=== PATIENT | male | born 1935 | race Caucasian/White ===

== ENCOUNTER → 2023-11-04 11:18 | Outpatient (REF) | payer MEDICARE, BC, SELFPAY | LOC: HWRAD 11:18 | PROVIDERS: ATTENDING PHYSICIAN Surgery Vascular Surgery; FAMILY PHYSICIAN Family Medicine | DX: I71.43 Infrarenal abdominal aortic aneurysm, without rupture (principal) | CPT/HCPCS: 74176 ==

== ENCOUNTER 2025-01-13 07:51 | Outpatient (RCR) | payer MEDICARE, BC, SELFPAY ==
[2025-01-13 08:00] VITALS: BP 159/77
[2025-01-13] MEDS: SODIUM BICARBONATE 1150 MEQ IV (08:14)
== END 2025-02-04 23:59 | disposition home or self-care (01) ==
LOC: OID 07:51
PROVIDERS: ATTENDING PHYSICIAN Surgery Vascular Surgery; FAMILY PHYSICIAN Family Medicine
DX: I71.40 Abdominal aortic aneurysm, without rupture, unspecified (principal)
CPT/HCPCS: 74176; 96365; 96366

== ENCOUNTER 2025-02-08 09:17 | Inpatient (IN) | payer MEDICARE, BC, SELFPAY ==
[2025-02-08] VITALS (14 sets, daily range): BP systolic 131–167; BP diastolic 57–90; BMI 23.9
[2025-02-08] MEDS: NSS 184 ML IV (07:18)
[2025-02-08] MEDS: LOW STRENGTH ASPIRIN 324 MG PO (07:19)
--- NOTE | 2025-02-08 09:57 | PTCARENOTE ---
Patient received to IVU from technical laboratory asst. Right radial band intact 11cc in the band. SB HR 38-46, BP 138/59. HE is AO x 3, [employer] [place] hearing aids. Denies chest pain or shortness of breath. Plan of care reviewed and oriented to call leyva
--- NOTE | 2025-02-08 10:47 | CONSULT.CT ---
Consultation
-
Date/Time Consultation Requested: 02/08/25
Date/Time Consultation Performed: 02/08/25
Requesting Provider: carlotta Lopez
Performing Provider: gokul KINGSLEY for Bob Kapadia MD
Reason for Consultation: CABG evaluation
Patient History
Physicians
Family Physician: Harshil Mccrary
Outpatient Psychiatric Nurse Practitioner: Matt Morrow
Inpatient Psychiatric Nurse Practitioner: Carlotta Lopez
History of Present Illness
89-year-old male was admitted 02/08/25 for preprocedure cardiac cath as clearance for TEVAR scheduled Saturday with Dr. Chen. 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 Patient had been experiencing an inability to walk his usual
pace. However denies dyspnea, leg heaviness and shortness of breath. Patient underwent a stress test last week which was positive for ischemia. Patient independent with ADLs. Ambulates without assistive devices and drives. Lives at [facility]. Left heart cath today reported complex multivessel coronary disease. Patient sen and examined resting in bed, pain free s/p cath.
Pertinent negatives: Denies CVA/TIA, asthma/COPD, hepatitis, bowel/bladder issues, DVT/PE, systemic cancer, vein stripping, chest radiation/surgery
Past Medical History
Past Medical History: GERD, HTN, Hypercholesterolemia and Other (Parkinsons, AAA (>5cm), skin cancers removed)
Past Surgical History
Past Surgical History: Tonsilectomy and Other (R inguinal hernia repair)
Family History
Mother: N/A
Father: N/A
Social History
Alcohol: None
Drug: None
Tobacco: Non-Smoker
Personal:
Living: With Spouse
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
Allergies
Allergy/AdvReac Type Severity Reaction Status Date / Time
Sulfa (Sulfonamide Allergy Hives Verified 02/08/25 10:03
Antibiotics)
Home Medications
�Medication �Instructions �Recorded �Confirmed �Type
doxepin 10 mg capsule 10 mg PO HS 02/06/21 02/08/25 History
esomeprazole magnesium 40 mg 40 mg PO DAILY 02/06/21 02/08/25 History
capsule,delayed release
rosuvastatin 10 mg tablet 10 mg PO DAILY 02/06/21 02/08/25 History
Review of Systems
-
History Source: Patient
General: Reports No Symptoms
HEENT: Reports No Symptoms
Respiratory: Reports No Symptoms
Cardiac: Reports No Symptoms
Abdomen/GI: Reports No Symptoms
: Reports No Symptoms
Musculoskeletal: Reports No Symptoms
Skin: Reports No Symptoms
Neurological: Reports No Symptoms
Vascular: Reports No Symptoms
Physical Exam
Vital Signs
Temp 97.9 F 02/08/25 09:00
Temp route: Oral 02/08/25 09:00
Pulse 45 02/08/25 10:00
Resp Rate 18 02/08/25 09:00
Blood pressure 146/57 02/08/25 10:00
Blood pressure extremity used: Left upper arm 02/08/25 09:00
Position: Lying 02/08/25 09:00
MAP (cuff-Mamadou Monitor) 83 02/08/25 10:00
SaO2 100 02/08/25 10:00
Oxygen Mode of Delivery Room air 02/08/25 09:00
Can the patient verbally communicate their pain? Yes 02/08/25 07:00
Actual Weight 61.3 kg 02/08/25 06:59
Body Mass Index (BMI) 23.9 02/08/25 06:59
Diagnostic Studies
TTE 01/27/25:
LVEF 55 to 60%. Grade 1 diastolic dysfunction. Trace MR/TR/PI. Mild AI.
LHC 02/08/25:
Left Main Trunk (LMT): The left main artery appears to be short and gives off a left circumflex and the LAD arteries. It is extremely difficult to lay out the anatomy despite multiple steep caudal angles. There is likely involvement of the distal
left main into the ostial LAD which appears to be angiographically significant and very heavily calcified.
Left Anterior Descending Artery (LAD): Large caliber vessel that gives off 1 major branching diagonal branches as it courses along the anterior inter-ventricular groove before wrapping around the cardiac apex. Ostial LAD has a heavily calcified
95% stenosis. Mid LAD has 2 serial focal 80% stenosis spanning across the takeoff of the diagonal branch. The ostium of the diagonal branch has 70% stenosis extending into the proximal portion.
Left Circumflex Artery (LCx): Large caliber dominant vessel that gives off 2 major obtuse marginal (OM) branches, one left posterolateral branch and the left posterior descending artery as it courses along the atrio-ventricular (AV) groove. Ostial
left circumflex in some views appears to have eccentric 60% stenosis. Proximal left circumflex has 70 to 75% calcified stenosis in between OM1 and OM 2 takeoff. OM1 appears to be a small caliber vessel with a likely chronic total occlusion and
left to left collaterals. OM 2 appears to have a subtotal occlusion with ISMAEL I antegrade flow with distal vessel also filling with left to left collaterals. Left posterior descending artery has a 85% stenosis in the distal portion.
Right Coronary Artery (RCA): Small caliber non-dominant vessel that gives rise to the posterior descending artery (RPDA) and postero-lateral ventricular (RPLV) branches distally. Ostial RCA has calcified 50% stenosis. Mid RCA has diffuse 40 to 50%
stenosis.
Exam
General: Well Developed, Well Nourished and Comfortable
HEENT: Normocephalic, Anicteric, Moist Mucous Membranes and PERRLA
Neck: Trachea Midline
Respiratory: Clear
Cardiac: S1/S2 and Regular Rhythm (bradycardia 40s on telemetry)
GI: Soft, Non Tender, Non Distended and Normal Bowel Sounds
Rectal: Deferred by Provider
Skin: Warm and Dry
Neuro: AO x 3, No Motor Deficits and Nonfocal/Grossly Intact
Extremities: Pulses (palpable DP pulses B/L)
Lymph: No Lymphadenopathy
Psych: Calm
Assessment / Plan
-
89 year old male with AAA and scheduled for EVAR with Dr Chen on 02/15, found to have multivessel coronary disease on cardiac work-up.
- surgeon to review imaging and discuss high risk CABG vs Impella assisted PCI
Data Reviewed
-
EKG: Report Reviewed by me and Discussed with Physician
Teacher Adventure Education: Report Reviewed by me and Discussed with Physician
Echo: Report Reviewed by me and Discussed with Physician
Radiology: Report Reviewed by me and Discussed with Physician
Labs: Labs Reviewed by me and Discussed with Physician
Old Records: Reviewed
--- NOTE | 2025-02-08 11:44 | HPS.HSE ---
Family Physician
-
Family Physician: Harshil Mccrary MD
Chief Complaint
-
Status post cardiac catheterization
History of Present Illness
Patient tells me apparently he was getting worked up for abdominal aortic aneurysm including a planned surgery for it by vascular team. He was going through outpatient preop eval including a cardiac catheterization which he had today. Apparently
has multivessel disease. He is brought in for further evaluation and treatments.
Tells me that he walks every day around 3 miles. Lately he has slowed down but no chest pain, shortness of breath or claudication with walking.
Denies any lightheadedness or dizziness.
Denies any prior history of heart disease.
Prior to today he says he was in his usual state of health.
No nausea vomiting or abdominal pain.
No fever or chills.
Medical History
Past Medical History
Past Medical History: Reports GERD, HTN, Hypercholesterolemia and Renal Failure
Additional Past Medical History:
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
Past Surgical History: Reports None
Social History
Tobacco: Non-smoker
Alcohol: None
Personal:
Living: With Family
Family History
Family History: Not pertinent
Allergies / Home Medications
Allergies reflects when Allergies were last updated in [facility].
Home Medications with original date entered in [facility]
Allergy/Medication List:
Allergies
Allergy/AdvReac Type Severity Reaction Status Date / Time
Sulfa (Sulfonamide Allergy Hives Verified 02/08/25 10:03
Antibiotics)
Home Medications
doxepin 10 mg capsule 10 mg PO HS 02/06/21
esomeprazole magnesium 40 mg capsule,delayed release 40 mg PO DAILY 02/06/21
rosuvastatin 10 mg tablet 10 mg PO DAILY 02/06/21
Review of Systems
-
A 12 point ROS was completed and negative except as noted: Yes
Physical Exam
Vital Signs
Vital Signs
Temp Pulse Resp BP Pulse Ox
97.9 F 45 18 146/57 100
02/08/25 09:00 02/08/25 10:00 02/08/25 09:00 02/08/25 10:00 02/08/25 10:00
Physical Exam
General: Comfortable
Respiratory: Clear and Non Labored Respirations; No Accessory Resp Muscle Use
Cardiac: S1/S2, Regular Rhythm and Murmur; No Tachycardia
GI: Soft, Non Tender, Non Distended and Normal Bowel Sounds
Musculoskeletal: No Edema, Left Lower Extremity or Edema, Right Lower Extremity
Skin: Warm
Neuro: AO x 3
Psych: Calm
Data Reviewed
-
Lab Data: Labs Reviewed by me (From 02/02/2025-creatinine 1.5)
Impression/Plan
-
Coronary artery disease-preop cardiac catheterization today shows CAD. Official report pending-apparently has multivessel disease. Admitted to hospital for further evaluation and treatment. There are plans for CT surgery evaluation. Continue
with antiplatelet treatments per radiology. On Crestor. Check lipid panel.
Abdominal aortic aneurysm without rupture-growing in size and there are plans for endovascular AAA repair/stenting. Vascular team will be notified
GERD-continue with PPI
Hyperlipidemia continue with statins
Chronic kidney disease-unknown stage-creatinine 1.5 today. Follow creatinine in a.m. Obtain old creatinine report from PCPs office
Full code
--- NOTE | 2025-02-08 12:08 | CM ---
Chart reviewed. Patient is independent of ADLS, lives in a apartment [place] at [facility], elevator access, 0 DME. Plan is for the patient to return home. CM to follow
--- NOTE | 2025-02-08 13:12 | ITS.CL.CATH ---
Brush Fabrication Supervisor - Catheterization
Cardiac Catheterization
Procedure Report:
LEFT HEART CATHETERIZATION
Date of Procedure: February 08, 2025
Referring: Matt Morrow MD
PROCEDURES:
1. Left heart catheterization, coronary angiogram.
2. Moderate sedation.
INDICATION: Dyspnea on exertion over the last 2 to 3 months and abnormal stress test in the inferolateral territory
ACCESS: Right radial artery, 6Fr. sheath, under US guidance.
HEMODYNAMICS : (mmHg)
AO (s/d) : 124/56
LVEDP : 12
No significant gradient across the aortic valve to suggest aortic stenosis.
CORONARY FINDINGS
Dominance: Right
Left Main Trunk (LMT): The left main artery appears to be short and gives off a left circumflex and the LAD arteries. It is extremely difficult to lay out the anatomy despite multiple steep caudal angles. There is likely involvement of the distal
left main into the ostial LAD which appears to be angiographically significant and very heavily calcified.
Left Anterior Descending Artery (LAD): Large caliber vessel that gives off 1 major branching diagonal branches as it courses along the anterior inter-ventricular groove before wrapping around the cardiac apex. Ostial LAD has a heavily calcified
95% stenosis. Mid LAD has 2 serial focal 80% stenosis spanning across the takeoff of the diagonal branch. The ostium of the diagonal branch has 70% stenosis extending into the proximal portion.
Left Circumflex Artery (LCx): Large caliber dominant vessel that gives off 2 major obtuse marginal (OM) branches, one left posterolateral branch and the left posterior descending artery as it courses along the atrio-ventricular (AV) groove. Ostial
left circumflex in some views appears to have eccentric 60% stenosis. Proximal left circumflex has 70 to 75% calcified stenosis in between OM1 and OM 2 takeoff. OM1 appears to be a small caliber vessel with a likely chronic total occlusion and
left to left collaterals. OM 2 appears to have a subtotal occlusion with ISMAEL I antegrade flow with distal vessel also filling with left to left collaterals. Left posterior descending artery has a 85% stenosis in the distal portion.
Right Coronary Artery (RCA): Small caliber non-dominant vessel that gives rise to the posterior descending artery (RPDA) and postero-lateral ventricular (RPLV) branches distally. Ostial RCA has calcified 50% stenosis. Mid RCA has diffuse 40 to 50%
stenosis.
SEDATION: 37 minutes of procedural sedation was utilized. IV Midazolam and IV Fentanyl were administered. An independent medical technologist chemistry was present to assist with and help manage the patient's level of consciousness and physiologic status.
RADIATION SUMMARY: Fluoro Time (min): 4.2, Dose (mGy): 352.76, DAP (Gy.cm2) : 20.9
Closure Device: There were no immediate intra-procedural complications. The sheath was pulled in the open hearth laborer and a vascular-band applied to the right wrist for radial artery hemostasis using the patent hemostasis technique.
CONCLUSIONS
1. Heavily calcified coronary arteries.
2. Multivessel coronary artery disease.
3. Normal LVEDP at 12 mmHg.
RECOMMENDATIONS
1. Wean radial band per protocol. Monitor right hand perfusion and for bleeding from the radial site following removal of the vascular-band following trans-radial access.
2. Continue aggressive medical therapy and risk factor modification for secondary CAD prevention.
3. Hydrate with normal saline to mitigate the risk of contrast-induced acute kidney injury.
4. Heart team discussion and extensive discussion with family as well as outpatient cardiology and vascular surgery to discuss the following treatment options: Medical therapy only accepting risk for higher MACE events, versus high risk Impella
assisted multivessel percutaneous coronary intervention versus high risk coronary artery bypass grafting.
Copy to: Matt Morrow MD
Carlotta Lopez MD, [facility], [facility]
[2025-02-08] MEDS: CRESTOR 20 MG PO (17:52)
[2025-02-08] MEDS: PROTONIX 40 MG PO (17:52)
[2025-02-08] MEDS: LOVENOX 30 MG SC (17:52)
[2025-02-08] MEDS: SINEQUAN 10 MG PO (22:01)
--- NOTE | 2025-02-09 01:11 | PTCARENOTE ---
Assumed care on pt at 1900, aaox3, denies cp, SOB, N&V. R radial cath site with CDI dressing, good pulses. SR/SB on the monitor, HR 35-60's, 2L O2 via NC applied during sleep. Pox 98% RA. Fall precautions maintained, bed and chair alarms in place,
call light within reach, uses it appropriately.
[2025-02-09 03:39] VITALS: BP 145/81
[2025-02-09 05:22] LABS: Hematocrit 34.2 % (39.0-52.0); Hemoglobin 11.5 g/dL (13.0-18.0); Mean Corp Hgb Conc. 33.6 g/dL (33.0-37.0); Mean Corpuscular Volume 87.2 fL (80.0-94.0); Platelet Count 162 10^3/uL (130-400); Red Cell Dist. Width 12.3 % (11.5-14.5)
[2025-02-09 05:40] LABS: Blood Urea Nitrogen 21 mg/dl (9-20); Calcium 8.7 mg/dl (8.4-10.2); Carbon Dioxide 22 mmol/L (22-30); Chloride 113 mmol/L (98-107); Estimated Creatinine Clearance 37 ml/min; Glucose 85 mg/dl (70-99); HDL Cholesterol 38 mg/dl; LDL Cholesterol, Calculated 56 mg/dl; Potassium 4.4 mmol/L (3.5-5.1); Sodium 140 mmol/L (135-145); Very Low Density Lipoprotein 14 mg/dl (0-30); eGFR > 60.00
[2025-02-09 08:08] VITALS: BP 126/71
[2025-02-09] MEDS: LOW STRENGTH ASPIRIN 81 MG PO (08:11)
--- NOTE | 2025-02-09 09:26 | PTCARENOTE ---
Assumed care. Patient assisted to chair for breakfast. Right wrist dressing CDI, denies pain. SB HR 50's. Bed and chair alarms audible, hx of falls, call leyva in reach
--- NOTE | 2025-02-09 10:48 | W.PN.CARDCBS ---
Addendum entered and electronically signed by Carlotta Lopez MD 02/09/25 18:52:
I saw and examined the patient.
The Medical Customer Service Representative's note was reviewed and I agree with the note.
Comment: Patient did well overnight and does not report any complaints this morning. Specifically denies any chest discomfort or shortness of breath at rest.
Daughter is at bedside.
Vital signs and lab work reviewed. On exam patient is well-appearing, out of bed in a chair, no acute distress, awake, alert and oriented x 3, regular rate, normal S1 and S2, no murmurs, rubs or gallops, no JVD, lungs are clear to auscultation
bilaterally, exercise with dressing in place with no evidence of hematoma or bruit, abdomen is soft, nontender, nondistended with active bowel sounds, warm extremities without significant edema.
Recommendations:
1. Extensive and multiple discussions were had throughout the day yesterday evening as well as today in regards to treatment options for his multivessel coronary artery disease and risk and benefits of each reviewing them in detail with patient and
his daughter at bedside. I also spoke separately with Dr. Tegan Chen, patient's niece. For now they would like to opt for medical therapy only given they are extremely nervous in regards to potential risks posed by high risk PCI that could
affect his quality of life. We did discuss that with medical therapy only there is a higher risk of Mace events including recurrent SC, cardiomyopathy/heart failure and mortality.
2. Continue aggressive medical therapy with daily baby aspirin, high intensity statin. We added low-dose amlodipine as antianginal medication and lieu of a beta-lauren given baseline bradycardia.
3. Ambulate out of bed, PT/OT.
4. Patient has a outpatient appointment scheduled with his asian art curator on March 01, 2025 where they would like to discuss further with him. I have separately spoken to him and reviewed images with him.
5. I also separately spoke with Dr. Jm Chen and his EVAR is on hold for now and Dr. Chen will follow-up with patient in the outpatient setting.
Carlotta Lopez MD, [facility], [facility]
Total time spent: 54 minutes
Original Note:
Today's Communication / Plan
-
ongoing discussions regarding treatment of MV CAD
continue asa, crestor, norvasc
CP free
ambulate
Impression / Plan
-
Primary Mechanical Inspector: Dr. Morrow
Assessment:
Multivessel coronary disease by cath 02/08/2025
Abdominal aortic aneurysm, tentatively scheduled for EVAR 02/15/2025
Hypertension
Aortic insufficiency
Hyperlipidemia
Renal insufficiency
GERD
Echo 01/27/2025: Normal left and right ventricular systolic function, mild aortic insufficiency, mild MAC, trivial MR, grade 1 diastolic dysfunction, top normal to mildly elevated RV systolic pressure
Plan:
- Patient underwent cardiac catheterization as part of cardiac clearance for upcoming EVAR procedure 02/15/2025. Cath 02/08 showed evidence of multivessel CAD
- Options for treatment include high risk CABG, high risk Impella assisted PCI, or medical therapy. CT surgery evaluating patient. Discussed with patient and daughter this morning, and at this point they are leaning toward medical therapy, which
appears appropriate given his advanced age and comorbidities
-Creatinine stable at 1.1
- Continue aspirin
- LDL 56. Continue Crestor, dose increased to 20 mg every afternoon this admission
- Norvasc 2.5 mg daily added to med regimen
- Patient without complaints of chest discomfort. Did report some dyspnea on exertion resulting in ischemic evaluation
- ambulate patient
- Discussed with nursing
- Discussed with patient and daughter at bedside
Progress Note - Mechanical Inspector
Subjective
Date of Service: February 09, 2025
no CP, SOB.
Objective
Labs:
02/09/25 04:52
02/09/25 04:52
Labs
Hgb 11.5 g/dL (13.0-18.0) L 02/09/25 04:52
Hct 34.2 % (39.0-52.0) L 02/09/25 04:52
Plt Count 162 10^3/uL (130-400) 02/09/25 04:52
Sodium 140 mmol/L (135-145) 02/09/25 04:52
Potassium 4.4 mmol/L (3.5-5.1) 02/09/25 04:52
BUN 21 mg/dl (9-20) H 02/09/25 04:52
Creatinine 1.1 mg/dL (0.7-1.3) 02/09/25 04:52
Glucose 85 mg/dl (70-99) 02/09/25 04:52
Vital Signs and I&O:
Vital Signs
Temp Pulse Resp BP Pulse Ox
97.9 F 64 16 126/71 99
02/09/25 08:16 02/09/25 10:00 02/09/25 08:16 02/09/25 08:08 02/09/25 08:16
Vital Signs
Temp Pulse Resp BP Pulse Ox
97.9 F 64 16 126/71 99
02/09/25 08:16 02/09/25 10:00 02/09/25 08:16 02/09/25 08:08 02/09/25 08:16
Intake & Output
02/07/25 02/08/25 02/09/25 02/10/25
07:59 07:59 07:59 07:59
Intake Total 240 / 240
Balance 240 / 240
Physical Exam
Physical Exam
GEN: No distress, awake, alert, oriented x3. sitting in chair. flat affect
HEENT: supple, anicteric, mmm, eomi
LUNGS: CTA B/L, no wheezes
CV: Reg, S1/S2, 1/6 murmur
ABD: soft, BS+, NT/ND
EXT: No cyanosis, clubbing, edema
NEURO: Gross non-focal
SKIN: Warm, pink, dry. No rash. R wrist site c/d/i
[2025-02-09 11:27] VITALS: BP 105/61
[2025-02-09 11:30] VITALS: BP 113/53
--- NOTE | 2025-02-09 12:42 | W.PN.HOSP.TC ---
Today's Communication/Plan
-
DC planning
Assessment / Plan
Assessment / Plan
Coronary artery disease-preop cardiac catheterization 02/08 shows multivessel disease.
Cardiology discussion with family noted-leaning towards medical therapy. Currently on aspirin and Norvasc was started. Patient's with slight bradycardia noted. Dose of his outpatient Lipitor increased.
Abdominal aortic aneurysm without rupture-growing in size and there are plans for endovascular AAA repair/stenting. Vascular team to weigh in on their further plans for endovascular repair of the aneurysm.
GERD-continue with PPI
Hyperlipidemia continue with statins
Chronic kidney disease-unknown stage/unknown acuity-creatinine 1.1 today. Old records show creatinine of 1.6 from 2019. 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 No acidosis or hyperkalemia noted. Follows
outpatient.
Full code
Depending on cardiology plan we will plan on discharge today.
Anticipated Discharge: Today
Subjective/Interval History
-
Date of Service: February 09, 2025
Patient without symptoms. Denies any chest pain, shortness of breath, palpitations, dizziness.
He understood the information provided to him by the cytotechnologist. Daughter at bedside. They were shocked with the findings and wants to also touch base with their outpatient cytotechnologist prior to interventions.
also likes to go home today if possible as his is getting into rehab.
Objective Data
-
Labs:
Laboratory Results
02/09/25
04:52
WBC 7.4
Hgb 11.5 L
Hct 34.2 L
Plt Count 162
Sodium 140
Potassium 4.4
Chloride 113 H
Carbon Dioxide 22
BUN 21 H
Creatinine 1.1
Glucose 85
Calcium 8.7
Vital Signs:
Vital Signs
Temp Pulse Resp BP Pulse Ox
97.6 F 57 18 113/53 100
02/09/25 11:24 02/09/25 11:30 02/09/25 11:24 02/09/25 11:30 02/09/25 11:27
I&O
02/08/25 02/09/25 02/10/25
06:59 06:59 06:59
Intake Total 240 / 240
Balance 240 / 240
Physical Exam
-
General: Comfortable
Respiratory: Clear to Auscultation and Non Labored Respirations; Negative Accessory Resp Muscle Use
Cardiac: Regular Rhythm and S1/S2; Negative Tachycardic
GI: Soft
Neuro: AO x 3
Psych: Calm; Negative Confused
Data Reviewed
-
Labs: Labs Reviewed by me
--- NOTE | 2025-02-09 14:38 | CM ---
Chart reviewed. Patient is independent of ADLS, lives in a [place] at [facility], elevator access, 0 DME. Plan is for the patient to return home. CM to follow
--- NOTE | 2025-02-09 15:11 | W.DCSUMMARY ---
Discharge Summary
Discharge Data
Date of Admission: 02/08/25
Date of Discharge: 02/09/25
-
Pending Results: No
Hospital Course
Primary diagnosis:
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
Secondary diagnosis:
Abdominal aortic aneurysm, tentatively scheduled for [facility]AR 02/15/2025
Hypertension
Aortic insufficiency
Hyperlipidemia
Chronic kidney disease 3
GERD
Hospital course:
Patient was getting up for aortic aneurysm repair cardiac eval and had elective cardiac catheterization yesterday and showed multivessel disease. He had no acute coronary syndrome currently nor decompensated from it with heart failure. Recent echo
from 01/27/2025 showed normal EF.
Cardiology had a discussion with the patient about the treatment of his multivessel disease including coronary bypass, PCI and stenting ,he preferred to be on medical treatment. He was started on aspirin. His Crestor was increased from 10 mg to 20
mg. With heart rate in the bradycardia side could not use beta-lauren. Norvasc was started by cardiology.
He also wants to follow-up with his primary legal assistant at [facility] before making any final decisions.
On admission his creatinine was 1.1 which is lower than his recent baseline of 1.5-1.6. His creatinine was 1.6 in 2020 as well. He seems to have chronic kidney disease stage III. Advised to follow with PCP.
Consultants on board:
Cardiology-Carlotta Smith
Discharge Plan
-
Patient Disposition: Home (Routine Discharge)
Discharge Diagnosis/Procedures: cardiac catheterization - multivessel CAD; Hx of Aortic aneurysm
Diet: Low Cholesterol
Activity: As tolerated
Driving Restrictions: Not until seen by your Dr
Bathing Restrictions: None
Stand Alone Forms: DC Instructions- Cath/EP Lab
Referrals:
Matt Morrow MD [Active, Cardiology] - 04/28/25 1:40 am
Mccrary,Harshil, MD [Family Provider, Internal Medicine] - in less than 1 week
Prescriptions:
New
amlodipine 2.5 mg Tablet
2.5 mg PO DAILY Qty: 30 0RF
aspirin 81 mg Tablet,Chewable
81 mg PO DAILY Qty: 30 0RF
rosuvastatin 20 mg Tablet
20 mg PO QPM Qty: 30 0RF
Continued
doxepin 10 MG capsule
10 mg PO HS
esomeprazole magnesium 40 mg Capsule,Delayed Release(Dr/Ec)
40 mg PO DAILY
Discontinued
rosuvastatin 10 MG tablet
10 mg PO DAILY
Discharge Orders:
Discharge Patient (As Directed); Ordered 02/09/25
Ordered By: Yovani Jang
Care Plan Goals
Care Plan Goals:
Problem: Readiness for enhanced knowledge related to diagnosis and treatment plan
Goal: Understand your diagnosis and treatment plan needs, including medications if applicable.
Instructions: Know your diagnosis, underlying causes and treatment plan options, including medications if applicable. Consult with your health care team to learn about your diagnosis and treatment plan, including medications if applicable.
Discharge Date and Time
Print Language: POLISH
[2025-02-09 15:38] VITALS: BP 131/63
--- NOTE | 2025-02-09 16:22 | PTCARENOTE ---
Patient discharged to home. Instructions reviewed with daughter and patient. They both verbalized understanding. IV and telemetry removed. Patient escorted to and assisted in his daughters car.
== END 2025-02-09 16:25 | disposition home or self-care (01) | DRG 287 ==
LOC: IVU 09:17
PROVIDERS: Internal Medicine Interventional Cardiology; Nurse Practitioner; ADMITTING PHYSICIAN Internal Medicine; FAMILY PHYSICIAN Family Medicine; OTHER PHYSICIAN Thoracic Surgery (Cardiothoracic Vascular Surgery)
PROC: B2111ZZ Fluoroscopy of Multiple Coronary Arteries using Low Osmolar Contrast (ICD-10-PCS; 2025-02-08)
PROC: 4A023N7 Measurement of Cardiac Sampling and Pressure, Left Heart, Percutaneous Approach (ICD-10-PCS; 2025-02-08)
DX: I25.10 Atherosclerotic heart disease of native coronary artery without angina pectoris (principal); I71.40 Abdominal aortic aneurysm, without rupture, unspecified; N18.30 Chronic kidney disease, stage 3 unspecified; I12.9 Hypertensive chronic kidney disease with stage 1 through stage 4 chronic kidney disease, or unspecified chronic kidney disease; I35.2 Nonrheumatic aortic (valve) stenosis with insufficiency; K21.9 Gastro-esophageal reflux disease without esophagitis; E78.00 Pure hypercholesterolemia, unspecified; G20.A1 Parkinson's disease without dyskinesia, without mention of fluctuations; Z95.1 Presence of aortocoronary bypass graft
CPT/HCPCS: 80048; 80061; 85027; 93458; 99152; 99153; C1894; Q9967